=== PATIENT | female | born 1985 | race Caucasian/White ===

== ENCOUNTER 2021-11-19 11:17 | Emergency (ER) | payer OTHER, MEDICAID, SELFPAY ==
[2021-11-19 11:19] VITALS: BP 120/82; PULSE 74; RESP 18; TEMP 37.2; O2SAT 98; BMI 21.4
--- NOTE | 2021-11-19 11:53 | CT_ITS ---
STUDY: CT MAXILLOFACIAL SINUSES REASON FOR EXAM: Female, 36 years old. Facial trauma RADIATION DOSAGE (If Supplied By Facility): CTDIvol = ( 29.38 ) mGy, DLP = ( 562.15 ) mGycm TECHNIQUE: The patient was scanned in a multi detector CT scanner. High resolution axial imaging was performed without the administration of intravenous contrast material. Sagittal and coronal images were reconstructed. Individualized dose optimization techniques were used for this CT. COMPARISON: None. FINDINGS: FRONTAL SINUSES: Normal aeration, without mucosal inflammatory disease. ETHMOIDAL SINUSES: Normal aeration, without mucosal inflammatory disease. MAXILLARY SINUSES: Minimal mucosal thickening along the inferior aspect of the right maxillary sinus. SPHENOIDAL SINUSES: Normal aeration, without mucosal inflammatory disease. There is patency of the bilateral maxillary infundibuli with normal uncinate processes, ethmoid bullae, and hiatus semilunaris. Normal bilateral middle turbinates. There is hypertrophy of the left inferior nasal turbinate. There is a minimal right sided nasal septal deviation, but without a nasal septal spur. There is patency of the bilateral nasal airways. The visualized osseous structures are normal. Mild degree of soft tissue swelling overlying the left orbit. CT/Sinus/Facial Bone IMPRESSION: Normal CT examination of the maxillofacial sinuses. Electronically Signed: Juan Miller MD at 12:43 EST ,
--- NOTE | 2021-11-19 11:53 | CT_ITS ---
STUDY: CT BRAIN WITHOUT CONTRAST REASON FOR EXAM: Female, 36 years old. Head injury, headache. Laceration overlying the left orbital region. RADIATION DOSAGE (If Supplied By Facility): CTDIvol = ( 44.99 ) mGy, DLP = ( 745.49 ) mGycm TECHNIQUE: Transaxial CT imaging of the brain was performed without administration of intravenous contrast material. Individualized dose optimization techniques were used for this CT. COMPARISON: No relevant priors. FINDINGS: Normal soft tissue structures. Normal calvarium. Normal size ventricles and extra-axial spaces for the patient''s age. Normal white matter tracts of the cerebral hemispheres. Normal basal ganglia and thalami. Normal brainstem. Normal cerebellum. There is no intracranial hemorrhage. There are no findings of an acute ischemic infarction. Normal visualized paranasal sinuses. CT/Brain/Head without Contrast IMPRESSION: Normal unenhanced CT scan of the brain. Electronically Signed: Juan Miller MD at 12:41 EST ,
--- NOTE | 2021-11-19 11:53 | EX.ED.GENINJ ---
HPI History of Present Illness Chief Complaint: Head Injury Informant: patient Narrative Narrative: Patient is a 36-year-old female without any significant past medical history presenting with facial and neck pain. Patient states on Thursday, 11/15 she was at work when a refrigerator door fell off a large, refrigerator and hit her in the face. She had a cut above her left eye and a chip of her front tooth. She notes since then she has had continued bruising and pain of her mormonism and forehead as well as now pain in her neck. She is associated nausea. Her friend who is a nurse used glue to close a laceration over her eye. She notes when she blows her nose sometimes she does have blood coming out. No active bleeding. She is on any blood thinners. No loss of conscious reported. No other complaints at this time. PFSH PFSH Home Medications cyclobenzaprine 10 mg PO TID PRN #14 tab 11/19/21 [Rx Last Taken Unknown] ibuprofen 600 mg PO Q6H PRN PRN #20 tab 11/19/21 [Rx Last Taken Unknown] Allergy/AdvReac Type Severity Reaction Status Date / Time No Known Allergies Allergy Verified 11/19/21 11:19 Social History Smoking Status: Current every day smoker tobacco type: cigarettes ROS ROS ED Constitutional Constitutional ED: Denies chills or fever(s) Eyes Eyes: Reports blurry vision and other Details: left eye lid swelling and bruising ; Denies change in vision ENT ENT ED: Reports other Details: nose pain, blowing out clots of blood. ; Denies ear pain or rhinorrhea Cardiovascular Cardiovascular: Denies chest pain Respiratory/Chest Respiratory/Chest: Denies cough or dyspnea Gastrointestinal Gastrointestinal: Reports nausea; Denies abdominal pain or vomiting Musculoskeletal Musculoskeletal: Reports neck pain; Denies arthralgias or myalgias Integumentary Denies rash Neurologic Neurologic: Reports headache(s); Denies paresthesias or weakness Psychiatric Psychiatric: Denies depression EXAM Physical Exam Const Vital Signs: 11/19/21 11:19 Temperature 98.9 F Temperature Source Temporal Pulse Rate 74 Respiratory Rate 18 Blood Pressure 120/82 H Blood Pressure Mean 94 Pulse Ox 98 Oxygen Delivery Method Room Air Positive well nourished and well developed General Appearance ED: well developed HEENT Reports TM's clear HEENT Narrative: Patient has mild tenderness of the bridge of her nose. Midface is stable. No signs of epistaxis on exam. Normal occlusion of the teeth. No obvious chip of the teeth appreciated. Nose: Negative for septum abnormal Tympanic Membrane ED: Yes TM's clear Eyes PERRL and EOMs intact bilaterally General Eye ED: Yes other Other Details: Left periorbital ecchymosis present. No significant edema. No exophthalmos present. Neck Neck Narrative: Bilateral paraspinal tenderness with bilateral trapezius spasm. No midline tenderness. Decreased range of motion present. Chest Wall inspection of chest normal Resp normal respiratory effort and clear to auscultation bilaterally Cardio regular rhythm Rate: regular rate Back/Spine normal to inspection and no thoracic nor lumbar tenderness Extremity normal to inspection and full ROM General Extremety ED: Negative for tenderness Neuro oriented x3, CN's II-XII intact bilaterally, moves all extremities and no focal motor deficits Sensorium / Orientation: alert Psych mental status grossly normal Skin Skin Narrative: 5 mm laceration above the left lateral thigh with Dermabond over it. It appears superficial. Healing ecchymosis around the left eye but no other signs of trauma appreciated. MDM MDM MDM Narrative Medical decision making narrative: Patient evaluated for facial injury at work. It occurred 4 days ago. She is concerned that she broke her nose and is continue to have headaches especially over her left mormonism. She also has significant neck pain with spasm. CT of the head and face obtained to rule out any fracture or intracranial process. No acute processes seen. No obvious fractures. Her neck pain is consistent with muscle spasms. Patient will be given ENT to follow-up as she is having difficulty breathing through her left nostril however there is no obvious fracture. She is counseled on NSAID therapy and heat for her back. She will be given a short course of Flexeril. She is counseled return precautions. She verbalizes agreement of this plan. Workmen's Compensation paperwork is filled out. Radiography Diagnostic Testing: Clinical Impression(s) from Imaging Studies Brain CT 11/19/21 11:53 IMPRESSION: Normal unenhanced CT scan of the brain. Electronically Signed: Juan Miller MD at 12:41 EST , Facial/Sinus 11/19/21 11:53 IMPRESSION: Normal CT examination of the maxillofacial sinuses. Electronically Signed: Juan Miller MD at 12:43 EST , Discharge Plan Triage Chief Complaint: Head Injury Other Complaint: Eye Problem Nosebleed Nausea/Vomiting ED Provider: Karen Kothari Dx/Rx/DC Orders Clinical Impression: Blunt trauma of face, Neck muscle spasm Instructions: ED Facial Contusion, ED Head Injury (Adult), ED Muscle Spasm Prescriptions: New ibuprofen 600 mg tablet 600 mg PO Q6H PRN PRN (Reason: fever or pain) Qty: 20 RF: 0 cyclobenzaprine 10 mg tablet 10 mg PO TID PRN (Reason: muscle spasm) Qty: 14 RF: 0 Primary Care Provider: Care Physician,No Primary Referrals: [facility] [GROUP OF PHYSICIANS] - Sundeep Canas MD [STAFF PHYSICIAN] - Care Physician,No Primary [Primary Care Provider] - Disposition Disposition: Home, Self Care
[2021-11-19] MEDS: Acetaminophen 500 MG Tablet 1000 MG PO (12:13)
[2021-11-19] MEDS: Ibuprofen 600 MG Tablet PO (13:27)
== END 2021-11-19 13:34 | disposition home or self-care (01) ==
PROVIDERS: Emergency Provider Emergency Medicine; Visit Provider Emergency Medicine
DX: S09.93XA Unspecified injury of face, initial encounter (principal); R04.0 Epistaxis; R11.2 Nausea with vomiting, unspecified; M62.838 Other muscle spasm; F17.210 Nicotine dependence, cigarettes, uncomplicated; X58.XXXA Exposure to other specified factors, initial encounter
CPT/HCPCS: 70450; 70486; 99283